=== PATIENT | male | born 1970 | race Caucasian/White ===

== ENCOUNTER 2017-10-03 15:14 | Emergency (ER) | payer SELFPAY ==
[~2017-10-03] VITALS: Ht 175.3 cm; Wt 68.0 kg
--- NOTE | 2017-10-03 15:18 | NUR ---
PT ROM [address] FOR NAUSEA AND ABD PAIN. DENIES VOMITING/DIARRHEA. SMOKES MARIJUANA. VSS. AWAITING FOR MD ORDERS. SAFETY AND COMFORT MEASURES PROVIDED. WILL MONITOR.
[2017-10-03] MEDS ORDERED: FLUO10CA26 PO (15:20)
--- NOTE | 2017-10-03 15:29 | NUR ---
LINEN ROOM CUSTODIAN AT FOR BLOOD DRAW.
[2017-10-03 15:37] LABS: BASOPHILS # (AUTO) 0.6 /CMM (0.0-0.2); BASOPHILS % (AUTO) 3.5 % (0.0-2.0); EOSINOPHILS # (AUTO) 0.7 /CMM (0.0-0.7); HEMATOCRIT 48 % (39-51); HEMOGLOBIN 16.6 g/dL (13.5-17.5); LYMPHOCYTES # (AUTO) 1.7 /CMM (0.8-4.8); LYMPHOCYTES % (AUTO) 10.4 % (20.0-44.0); MEAN CORPUSCULAR HEMOGLOBIN 32 PG (26.0-33.0); MEAN CORPUSCULAR HGB CONC 35 g/dl (31.0-36.0); MEAN CORPUSCULAR VOLUME 92 fL (80-96); MONOCYTES # (AUTO) 1.3 /CMM (0.1-1.30); MONOCYTES % (AUTO) 7.7 % (2.0-12.0); NEUTROPHILS # (AUTO) 12.1 /CMM (1.8-8.9); NEUTROPHILS % (AUTO) 74.4 % (43.0-81.0); PLATELET COUNT (AUTO) 324 /CMM (150-450); RED BLOOD CELL COUNT(AUTO) 5.18 MIL/uL (4.5-6.0); WHITE BLOOD COUNT (AUTO) 16.4 K/uL (4.3-11.0)
[2017-10-03 15:44] LABS: CALCIUM, SERUM 9.1 mg/dL (8.5-10.1); CREATININE 0.9 mg/dL (0.6-1.3)
[2017-10-03 15:50] LABS: ALBUMIN 3.7 g/dL (3.4-5.0); BILIRUBIN,DIRECT 0.2 mg/dL (0.0-0.2); BILIRUBIN,TOTAL 0.9 mg/dL (0.2-1.0); TOTAL PROTEIN, SERUM 8.2 g/dL (6.4-8.2)
--- NOTE | 2017-10-03 16:00 | NUR ---
Patient is resting comfortably in bed with eyes closed. Easily aroused. VSS
[2017-10-03 16:12] LABS: BAND % (MANUAL) 4 % (0.0-5.0); EOSINOPHILS % (MANUAL) 2 % (0-4); LYMPHOCYTES % (MANUAL) 16 % (16-48); MONOCYTES % (MANUAL) 11 % (0-11.0); NEUTROPHILS % (MANUAL) 67 (42-76)
--- NOTE | 2017-10-03 18:30 | NUR ---
PT AWAKE, WALKED TO THE RESTROOM NOTED WITH A STEADY GAIT.
--- NOTE | 2017-10-04 00:56 | NUR ---
ASSUME PT CARE. SLEEPING, EASILY AROUSABLE. ON MONITOR W/ STABLE VITALS. WILL CONTINUE TO MONITOR.
--- NOTE | 2017-10-04 02:16 | NUR ---
REPORT TO CHARGE NURSE IGGY FOR FREIDA.
[2017-10-04 05:49] VITALS: BP 121/78
--- NOTE | 2017-10-04 05:49 | NUR ---
pt ok to discharge per dr ibarra. Patient discharged to home in stable condition. Written and verbal after care instructions given. Patient verbalizes understanding of instruction.Patient is awake and alert to self, day, and place. pt ambulatory with a steady gait
== END 2017-10-04 05:50 | disposition home or self-care (01) ==
LOC: ER 15:16
DX: R11.0 Nausea (principal); I10 Essential (primary) hypertension; J44.9 Chronic obstructive pulmonary disease, unspecified; F31.9 Bipolar disorder, unspecified; E11.9 Type 2 diabetes mellitus without complications; Z88.0 Allergy status to penicillin
CPT/HCPCS: 36415; 80048; 80076; 83690; 85025; 99284; A4606; Z7610

== ENCOUNTER 2020-06-22 15:39 | Emergency (ER) | payer MEDICAID, OTHER ==
[~2020-06-22] VITALS: Ht 175.3 cm; Wt 90.7 kg
[~2020-06-22 15:39] MED LIST: FLUO10CA26 PO
--- NOTE | 2020-06-22 16:22 | NUR ---
BIBRA TO ER BED 15. AAOX4. NO TIN RESP DISTRESS. AMBULATORY. CAME IN FOR A L FLANK PAIN STARTED THIS MORNING. PER PT PAIN IS 6/10, PT STATES THAT IT FEELS LIKE WHEN HE HAD A KIDNEY STONE IN THE PAST. AWAITING MD FOR EVAL.
--- NOTE | 2020-06-22 16:23 | NUR ---
DR CUEVA AT BEDSIDE FOR EVAL
[2020-06-22] MEDS ORDERED: IV NS 0.9% 1,000 ML BAG IV ONE (16:30)
[2020-06-22 16:34] LABS: BILIRUBIN,URINE Negative (NEGATIVE); BLOOD, URINE Trace-intact Ery/uL (NEGATIVE); COLOR,URINE YELLOW (YELLOW); LEUKOCYTE ESTERASE ,URINE Negative (NEGATIVE); NITRITE, URINE Negative (NEGATIVE); PH,URINE 6.5 (5.0-8.0); PROTEIN,URINE Negative (NEGATIVE); UGLUCOSE Negative (NEGATIVE); UROBILINOGEN,URINE 0.2 EU/dL (0.2)
[2020-06-22 16:41] LABS: BACTERIA,URINE Rare /HPF (None Seen); SQUAMOUS EPITHELIAL CELL,UR Few /HPF (None Seen); WBC,URINE NONE SEEN /HPF (0-3)
[2020-06-22 16:48] LABS: BASOPHILS # (AUTO) 0.1 /CMM (0.0-0.2); BASOPHILS % (AUTO) 1.2 % (0.0-2.0); HEMATOCRIT 48 % (39-51); HEMOGLOBIN 16.2 g/dL (13.5-17.5); LYMPHOCYTES # (AUTO) 2.2 /CMM (0.8-4.8); LYMPHOCYTES % (AUTO) 26.2 % (20.0-44.0); MEAN CORPUSCULAR HGB CONC 34 g/dl (31.0-36.0); MEAN CORPUSCULAR VOLUME 96 fL (80-96); MONOCYTES # (AUTO) 0.9 /CMM (0.1-1.30); MONOCYTES % (AUTO) 10.4 % (2.0-12.0); NEUTROPHILS # (AUTO) 4.3 /CMM (1.8-8.9); NEUTROPHILS % (AUTO) 52.2 % (43.0-81.0); PLATELET COUNT (AUTO) 333 /CMM (150-450); RED BLOOD CELL COUNT(AUTO) 4.96 MIL/uL (4.5-6.0); WHITE BLOOD COUNT (AUTO) 8.2 K/uL (4.3-11.0)
[2020-06-22 17:09] LABS: ALBUMIN 3.1 g/dL (3.4-5.0); BILIRUBIN,DIRECT 0.2 mg/dL (0.0-0.2); BILIRUBIN,TOTAL 0.7 mg/dL (0.2-1.0); CALCIUM, SERUM 8.9 mg/dL (8.5-10.1); CREATININE 0.9 mg/dL (0.6-1.3); POTASSIUM 3.9 mmol/L (3.5-5.1); TOTAL PROTEIN, SERUM 7.1 g/dL (6.4-8.2)
[2020-06-22] MEDS ORDERED: ONDANSETRON HCL/PF - ER 4 MG/2 ML VIAL IV ONE (17:30)
[2020-06-22] MEDS ORDERED: MORPHINE SULFATE INJ 2 MG/ML DISP.SYRIN IV ONE (17:30)
[2020-06-22] MEDS ORDERED: ONDANSETRON HCL/PF 4 MG/2 ML VIAL ONE (17:35)
[2020-06-22] MEDS ORDERED: MORPHINE SULFATE INJ 2 MG/ML DISP.SYRIN ONE (17:35)
--- NOTE | 2020-06-22 19:35 | NUR ---
IV removed. Catheter intact and site benign. Pressure and 4x4 applied to site. No bleeding noted.
--- NOTE | 2020-06-22 19:35 | NUR ---
Patient discharged to home in stable condition. Written and verbal after care instructions given. Patient verbalizes understanding of instruction and RX. Pt ambulated out of E.D. vss. No acute distress noted. Denies pain.
[2020-06-22 19:36] VITALS: BP 121/72
== END 2020-06-22 19:37 | disposition home or self-care (01) ==
LOC: ER 15:51
DX: R10.9 Unspecified abdominal pain (principal); J44.9 Chronic obstructive pulmonary disease, unspecified; I10 Essential (primary) hypertension; E11.9 Type 2 diabetes mellitus without complications; Z87.442 Personal history of urinary calculi; Z88.0 Allergy status to penicillin; Z79.899 Other long term (current) drug therapy
CPT/HCPCS: 36415; 74176; 80048; 80076; 81001; 83690; 85025; 96361; 96374; 96375; 99284; J2270; J2405; J7030

== ENCOUNTER 2020-12-24 17:18 | Emergency (ER) | payer OTHER ==
[~2020-12-24] VITALS: Ht 175.3 cm; Wt 86.2 kg
--- NOTE | 2020-12-24 17:28 | NUR ---
ROM TO ER BED 6. AAOX4. SOB. BROUGHT IN FOR SOB STARTED LAST NIGHT. PER PT, HE RAN OUT OF INHALER. PT WAS NOTED WITH PRODUCTIVE COUGH. PT IS SATING @ 98% ON RA. PT PLACED ON PULSE OX MONITOR. WILL CONTINUE TO MONITOR
[2020-12-24] MEDS ORDERED: methylPREDNISolone SOD SUCC 125 MG/2ML VIAL ONE (17:55)
[2020-12-24 17:58] LABS: BASOPHILS # (AUTO) 0.1 /CMM (0.0-0.2); EOSINOPHILS % (AUTO) 12.4 % (0.0-6.0); HEMATOCRIT 43 % (39-51); HEMOGLOBIN 14.7 g/dL (13.5-17.5); LYMPHOCYTES # (AUTO) 3.2 /CMM (0.8-4.8); LYMPHOCYTES % (AUTO) 38.7 % (20.0-44.0); MEAN CORPUSCULAR HGB CONC 34 g/dl (31.0-36.0); MEAN CORPUSCULAR VOLUME 94 fL (80-96); MONOCYTES # (AUTO) 0.8 /CMM (0.1-1.30); MONOCYTES % (AUTO) 9.3 % (2.0-12.0); NEUTROPHILS # (AUTO) 3.2 /CMM (1.8-8.9); NEUTROPHILS % (AUTO) 38.6 % (43.0-81.0); PLATELET COUNT (AUTO) 377 /CMM (150-450); RED BLOOD CELL COUNT(AUTO) 4.65 MIL/uL (4.5-6.0); WHITE BLOOD COUNT (AUTO) 8.3 K/uL (4.3-11.0)
[2020-12-24] MEDS ORDERED: IPRATROPIUM NEB FS 0.5 MG/2.5 ML AMPUL.NEB NEB ONE (18:00)
[2020-12-24] MEDS ORDERED: methylPREDNISolone SOD SUCC 125 MG/2ML VIAL IV ONE (18:00)
[2020-12-24] MEDS ORDERED: ALBUTEROL FS 2.5 MG/3 ML VIAL.NEB NEB ONE (18:00)
[2020-12-24] MEDS ORDERED: IPRATROPIUM NEB FS 0.5 MG/2.5 ML AMPUL.NEB ONE (18:01)
[2020-12-24] MEDS ORDERED: ALBUTEROL FS 2.5 MG/0.5 ML VIAL.NEB ONE (18:01)
[2020-12-24 18:10] LABS: CALCIUM, SERUM 8.4 mg/dL (8.5-10.1); CARBON DIOXIDE 28 mmol/L (21-32); CHLORIDE 103 mmol/L (98-107); CREATININE 0.9 mg/dL (0.6-1.3); GLUCOSE 92 mg/dL (74-106); POTASSIUM 3.6 mmol/L (3.5-5.1); SODIUM SERUM 139 mmol/L (136-145); UREA NITROGEN, BLOOD 13 mg/dL (7-18)
[2020-12-24] MEDS ORDERED: ALBU6.7H9 IH (18:24)
[2020-12-24] MEDS ORDERED: PREDNISONE (18:24)
[2020-12-24 18:29] LABS: ALANINE AMINOTRANSFERASE 18 U/L (12-78); ALBUMIN 3.3 g/dL (3.4-5.0); ALKALINE PHOSPHATASE 75 U/L (46-116); ASPARTATE AMINOTRANSFERASE 16 U/L (15-37); B-TYPE NATRIURETIC PEPTIDE 72 PG/ML (0-125); BILIRUBIN,DIRECT 0.1 mg/dL (0.0-0.2); BILIRUBIN,TOTAL 0.5 mg/dL (0.2-1.0); TOTAL PROTEIN, SERUM 7.6 g/dL (6.4-8.2)
--- NOTE | 2020-12-24 19:03 | NUR ---
received a call fromthe lab regarding covid result "negative".
[2020-12-24] MEDS ORDERED: ALBU8.5H8 INH (19:57)
[2020-12-24] MEDS ORDERED: PRED20TA PO (19:57)
--- NOTE | 2020-12-24 20:03 | NUR ---
Pt denied being homeless. pt verbalized that he is staying with his girlfriend.
--- NOTE | 2020-12-24 20:04 | NUR ---
Patient discharged to home in stable condition. Written and verbal after care instructions given. Patient verbalizes understanding of instruction.IV removed. Catheter intact and site benign. Pressure and 4x4 applied to site. No bleeding noted. Pt ambulatory with a steady gait
[2020-12-24 20:06] VITALS: BP 119/74
== END 2020-12-24 20:07 | disposition home or self-care (01) ==
LOC: ER 17:19
DX: J44.1 Chronic obstructive pulmonary disease with (acute) exacerbation (principal); R06.03 Acute respiratory distress; Z20.822 Contact with and (suspected) exposure to COVID-19; F17.210 Nicotine dependence, cigarettes, uncomplicated; Z59.0 Homelessness; F31.9 Bipolar disorder, unspecified; E11.9 Type 2 diabetes mellitus without complications; Z88.0 Allergy status to penicillin; I10 Essential (primary) hypertension
CPT/HCPCS: 36415; 71045; 80048; 80076; 83880; 84484; 85025; 87426; 93005; 94644; 96374; 99291; C9803; J2930

== ENCOUNTER 2021-01-08 01:12 | Emergency (ER) | payer OTHER ==
[~2021-01-08] VITALS: Ht 175.3 cm; Wt 52.2 kg
[~2021-01-08 01:12] MED LIST changes: +ALBU6.7H9 IH; +ALBU8.5H8 INH; -FLUO10CA26 PO; +PRED20TA PO; +PREDNISONE
[2021-01-08 01:13] VITALS: BP 127/84
--- NOTE | 2021-01-08 02:36 | NUR ---
Patient discharged to home in stable condition. Written and verbal after care instructions given. Patient verbalizes understanding of instruction.
== END 2021-01-08 02:37 | disposition home or self-care (01) ==
LOC: ER 01:15
DX: J44.1 Chronic obstructive pulmonary disease with (acute) exacerbation (principal); F17.210 Nicotine dependence, cigarettes, uncomplicated; I10 Essential (primary) hypertension; E11.9 Type 2 diabetes mellitus without complications; F31.9 Bipolar disorder, unspecified; Z88.0 Allergy status to penicillin; Z79.899 Other long term (current) drug therapy; Z59.0 Homelessness
CPT/HCPCS: 71045-TC

== ENCOUNTER 2022-06-18 08:29 | Emergency (ER) | payer OTHER ==
[~2022-06-18] VITALS: Ht 175.3 cm; Wt 70.3 kg
--- NOTE | 2022-06-18 08:30 | NUR ---
Receved pt 50 yrs male TOÑA HERNANDES Receponded after NARCAN spray was given by his fraind was given more awake and fallow command
--- NOTE | 2022-06-18 08:35 | NUR ---
SEEN BY DR. CASTELLANO
--- NOTE | 2022-06-18 09:48 | NUR ---
CALLED SHELL ASSEMBLER DESHAWN ON HER WAY.
--- NOTE | 2022-06-18 10:40 | NUR ---
Engineering And Development Director Consult SW was called to evaluate a 50-year-old white male pt. who was BIBRA for fentanyl overdose. The pt. was given Narcan by his friend per EMR. SW met with pt. at bedside. The pt. is alert and oriented x4. The pt. appears unkempt and had a depressed mood with a congruent affect. Pt. began crying during interview stating he is depressed and feels lonely. Pt. states that he has been homeless for the last two years since the pandemic started and has been staying in shelters. Pt. reported that he lost his bed in [facility] because he did not make it on time due to being arrested the night before. SW offered pt. retirement placement once pt. is medically cleared in which pt. was agreeable. SW explored pt.'s mental health hx in which pt. reported he has been diagnosed with Bipolar Disorder, Anxiety Disorder, and Depression. Per pt. report he was taking Prozac and Risperdal but has not taken the medication for 2 years and currently not on any psychotropic medication. Per pt. report he receives calfresh, SSI and disability are pending. Pt. reports use of alcohol and methamphetamines. Pt. stated that he did not intentionally use fentanyl, he stated he used "crystal" that he believes was laced with fentanyl. Pt. reports having visual and auditory hallucinations. SW assessed for suicidal and homicidal ideation in which pt. reported having a suicidal ideation with a plan to jump of a boat, pt. reported he does not have access to a boat. Pt. denied homicidal ideation. This social work job titles provided support with motivational interviewing, along with education regarding drug dependence, brief intervention and referral to treatment. [facility]: [address] [place] [address] Intake hours: 5:45am-9:00am, walk-ins Saturday, Saturday, [facility]: [address] [place] [address] Intake hours: 5:45am-12:30pm, Saturday and [facility]: [address] [place] [id number] Intake hours: 8:00am-2:00pm, Saturday through Saturday Pt. appears to be at the preparation phase of change with substance dependence. Pt. states that he is open to rehab tx and retirement placements. Pt. states that he wants to get better and is open to mental health tx as well. ALEXANDRE offered pt. addiction resources, homeless resources, and MAT program information in which pt accepted and expressed interest to go to [facility] ([address] [facility], [place] [address], ) for residential tx. Pt. also agreed to go to [facility] for voluntary placement. SW will fax clinicals to [facility] for voluntary psychiatric placement. protective services case worker provided her desk number for patient to call if he needs additional support, resources or assistance. Report was given to Dr Krueger who is agreeable to plan. SW informed charge nurse that patient should be provided with bus pass upon discharge. Patient signed the homeless waiver & it was filed in the pt.'s chart.
[2022-06-18 11:10] LABS: BASOPHILS # (AUTO) 0.1 K/uL (0.0-0.2); BASOPHILS % (AUTO) 0.5 % (0.0-2.0); EOSINOPHILS % (AUTO) 1.9 % (0.0-6.0); HEMATOCRIT 45 % (39-51); LYMPHOCYTES # (AUTO) 1.6 K/uL (0.8-4.8); LYMPHOCYTES % (AUTO) 14.4 % (20.0-44.0); MEAN CORPUSCULAR HGB CONC 33 g/dl (31.0-36.0); MEAN CORPUSCULAR VOLUME 93 fL (80-96); MONOCYTES # (AUTO) 1.1 K/uL (0.1-1.30); MONOCYTES % (AUTO) 9.4 % (2.0-12.0); NEUTROPHILS # (AUTO) 8.4 K/uL (1.8-8.9); NEUTROPHILS % (AUTO) 73.8 % (43.0-81.0); PLATELET COUNT (AUTO) 389 K/uL (150-450); RED BLOOD CELL COUNT(AUTO) 4.81 MIL/uL (4.5-6.0); WHITE BLOOD COUNT (AUTO) 11.4 K/uL (4.3-11.0)
[2022-06-18 11:35] LABS: CALCIUM, SERUM 8.9 mg/dL (8.5-10.1); CARBON DIOXIDE 31 mmol/L (21-32); CHLORIDE 106 mmol/L (98-107); GLUCOSE 78 mg/dL (74-106); POTASSIUM 3.6 mmol/L (3.5-5.1); SODIUM SERUM 142 mmol/L (136-145); UREA NITROGEN, BLOOD 10 mg/dL (7-18)
[2022-06-18 11:42] LABS: ALANINE AMINOTRANSFERASE 27 U/L (12-78); ALBUMIN 3.5 g/dL (3.4-5.0); ALCOHOL, BLOOD < 3 mg/dL (0-0); ALKALINE PHOSPHATASE 76 U/L (46-116); ASPARTATE AMINOTRANSFERASE 20 U/L (15-37); BILIRUBIN,DIRECT 0.2 mg/dL (0.0-0.2); BILIRUBIN,TOTAL 0.8 mg/dL (0.2-1.0); TOTAL PROTEIN, SERUM 7.8 g/dL (6.4-8.2)
[2022-06-18 11:45] LABS: ACETAMINOPHEN 0 ug/ml (10-30)
--- NOTE | 2022-06-18 13:07 | NUR ---
UA SENT TO LAB
[2022-06-18 14:08] LABS: BILIRUBIN,URINE NEGATIVE (NEGATIVE); COLOR,URINE YELLOW (YELLOW); LEUKOCYTE ESTERASE ,URINE NEGATIVE (NEGATIVE); NITRITE, URINE NEGATIVE (NEGATIVE); PROTEIN,URINE TRACE mg/dl (NEGATIVE); UGLUCOSE NEGATIVE (NEGATIVE)
--- NOTE | 2022-06-18 14:21 | NUR ---
PT ASLEEPY REPRATION spont and easy
--- NOTE | 2022-06-18 15:43 | NUR ---
SW called [facility] ([address], [place], [place] ) to facilitate pt.'s follow up for MAT.
--- NOTE | 2022-06-18 15:58 | NUR ---
ALEXANDRE faxed clinicals to [facility] TEL:[phone] fax:[phone] for for voluntary psychiatric treatment at [facility] [[facility] [place] [address] FAX:[phone]].
--- NOTE | 2022-06-18 17:06 | NUR ---
VITAL SIGNS UPDATED.
--- NOTE | 2022-06-18 17:30 | NUR ---
COVID SWAB COLLECTED AND SENT TO LAB
--- NOTE | 2022-06-18 18:06 | NUR ---
RESTING and asleepy no distress
--- NOTE | 2022-06-18 19:25 | NUR ---
HAND OFF MAYCOL BERRY
--- NOTE | 2022-06-20 07:33 | NUR ---
per celine, clinicals not yet reviewed because no beds available; celine will speak w/ cheikh, rn fitting room supervisor, and will call back for update.
--- NOTE | 2022-06-20 11:30 | NUR ---
PT STATED THAT HE WANTS TO LEAVE THE HOSPITAL ALREADY. PT CURRENTLY NOT ON A HOLD AND DENIES SI/HI AT THIS TIME. DR PUENTES MADE AWARE AND OK W/ MD FOR PT TO LEAVE.
--- NOTE | 2022-06-20 11:37 | NUR ---
PT PROVIDED HOMELESS WAIVER/RESOURCES BUT REFUSED BY PT AT THIS TIME
--- NOTE | 2022-06-20 11:39 | NUR ---
Patient discharged to home/homeless in stable condition. Written and verbal after care instructions given. Patient verbalizes understanding of instruction.
[2022-06-20 11:40] VITALS: BP 120/90
== END 2022-06-20 11:41 | disposition home or self-care (01) ==
LOC: ER 08:45
DX: T43.651A Poisoning by methamphetamines accidental (unintentional), initial encounter (principal); T40.411A Poisoning by fentanyl or fentanyl analogs, accidental (unintentional), initial encounter; F15.10 Other stimulant abuse, uncomplicated; F11.10 Opioid abuse, uncomplicated; Y92.480 Sidewalk as the place of occurrence of the external cause; R45.851 Suicidal ideations; J44.9 Chronic obstructive pulmonary disease, unspecified; Z88.0 Allergy status to penicillin; E11.9 Type 2 diabetes mellitus without complications; F31.9 Bipolar disorder, unspecified; Z20.822 Contact with and (suspected) exposure to COVID-19
CPT/HCPCS: 99285; 85025; 80048; 80076; 81003; 36415; 87426; 80143; 80320; 80307; C9803; G0480